=== PATIENT | female | born 1995 | race Two or more races ===

== ENCOUNTER 2018-06-28 18:49 | Emergency (ER) | payer OTHER ==
[~2018-06-28] VITALS: Ht 157.5 cm; Wt 44.9 kg
== END 2018-06-29 00:25 | disposition home or self-care (01) ==
LOC: ER 18:49
DX: K52.9 Noninfective gastroenteritis and colitis, unspecified (principal)

== ENCOUNTER 2019-04-30 09:57 | Outpatient (CLI) | payer OTHER | END 2019-04-30 10:10 | disposition home or self-care (01) | LOC: RAD 09:57 | DX: Q67.5 Congenital deformity of spine (principal) ==

== ENCOUNTER 2022-01-31 12:58 | Outpatient (CLI) | payer OTHER | END 2022-01-31 13:28 | disposition home or self-care (01) | LOC: NST 12:58 | PROVIDERS: ATTEND Obstetrics & Gynecology | DX: Z34.83 Encounter for supervision of other normal pregnancy, third trimester (principal) ==

== ENCOUNTER → 2022-02-05 | Outpatient (CLI) | payer OTHER ==
[~2022-02-05] MED LIST: COMPLETE NATAL1 EACH PO; DIALYVITE 800-1 EACH PO
== END | disposition home or self-care (01) ==
LOC: OBS/DEL 11:26
PROVIDERS: ATTEND Obstetrics & Gynecology
DX: O26.893 Other specified pregnancy related conditions, third trimester (principal); Z3A.38 38 weeks gestation of pregnancy

== ENCOUNTER 2022-02-06 03:17 | Inpatient (IN) | payer OTHER ==
[~2022-02-06] VITALS: Ht 157.5 cm; Wt 67.1 kg
[2022-02-06] MEDS ORDERED: DIALYVITE 800-1 EACH PO (03:29)
[2022-02-06] MEDS ORDERED: COMPLETE NATAL1 EACH PO (03:29)
== END 2022-02-08 11:38 | disposition home or self-care (01) | DRG 807 ==
LOC: OB/GYN → LDR 03:17 → OB/GYN 07:38
PROVIDERS: ADMIT Obstetrics & Gynecology; ATTEND Obstetrics & Gynecology
PROC: 10E0XZZ Delivery of Products of Conception, External Approach (ICD-10-PCS; principal; 2022-02-06)
PROC: 0KQM0ZZ Repair Perineum Muscle, Open Approach (ICD-10-PCS; 2022-02-06)
PROC: 4A1HXCZ Monitoring of Products of Conception, Cardiac Rate, External Approach (ICD-10-PCS; 2022-02-06)
DX: O70.1 Second degree perineal laceration during delivery (principal); Z37.0 Single live birth; Z3A.38 38 weeks gestation of pregnancy; Z20.822 Contact with and (suspected) exposure to COVID-19